=== PATIENT | female | born 1985 | race Caucasian/White ===

== ENCOUNTER 2018-07-21 05:44 | Day surgery (SDC) | payer OTHER ==
[~2018-07-21] VITALS: Ht 154.9 cm; Wt 68.9 kg
[2018-07-21 06:29] VITALS: BP 120/76
[2018-07-21] MEDS ORDERED: birth control PO (06:29)
[2018-07-21] MEDS ORDERED: SODIUM CHLORIDE 0.9% 1,000 ML IV SCH (06:30)
[2018-07-21] MEDS ORDERED: ROPivacaine/PF 0.2%, 10 ML ONE (07:49)
[2018-07-21] MEDS ORDERED: LIDOCAINE-MPF 2%, 2ML ONE (07:50)
[2018-07-21 09:39] LABS: GLUCOSE, CSF 56 mg/dL (40-80); TOTAL PROTEIN,CSF 23 mg/dL (15-45)
== END 2018-07-21 11:30 | disposition home or self-care (01) ==
LOC: RAD 05:44 → OUT 11:30
PROVIDERS: ATTEND Registered Nurse
DX: G62.9 Polyneuropathy, unspecified (principal)
CPT/HCPCS: 36415; 62270; 82040; 82042; 82784; 82945; 83873; 84157; 86645; 86695; 86696; 86762; 86777; 86778; 89051; J2795; J7030; J3490

== ENCOUNTER 2018-11-13 13:41 | Outpatient (CLI) | payer OTHER ==
[~2018-11-13 13:41] MED LIST: GADOBUTROL 7.5 MMOL/7.5 ML PFS IV ONE; birth control PO
[2018-11-14] MEDS ORDERED: GADOBUTROL 7.5 MMOL/7.5 ML PFS ONE (10:00)
== END 2018-11-13 23:59 | disposition home or self-care (01) ==
LOC: CFH 13:41
PROVIDERS: ATTEND Registered Nurse
DX: R90.82 White matter disease, unspecified (principal); G62.9 Polyneuropathy, unspecified
CPT/HCPCS: 70553; A9585